=== PATIENT | male | born 1975 | race Caucasian/White ===

== ENCOUNTER 2017-11-28 23:35 | Observation (INO) | payer OTHER, SELFPAY ==
[2017-11-29] MEDS ORDERED: Enoxaparin Sodium 80 MG/0.8 ML SYRINGE ONE (01:43)
[2017-11-29 02:02] LABS: Troponin I Less than 0.010 ng/mL (< 0.028)
[2017-11-29] MEDS ORDERED: Acetaminophen 325 MG TAB PO PRN (02:46)
[2017-11-29] MEDS ORDERED: Ondansetron HCl/PF 4 MG/2 ML Vial IVP PRN (02:46)
[2017-11-29] MEDS ORDERED: Ondansetron ODT 4 MG TAB SL PRN (02:46)
[2017-11-29 03:31] VITALS: BMI 29.5
[2017-11-29 05:09] LABS: Troponin I Less than 0.010 ng/mL (< 0.028)
[2017-11-29] MEDS ORDERED: Aspirin 325 MG TAB PO SCH (08:00)
[2017-11-29] MEDS ORDERED: Prevnar 13-Val Conj/PF 0.5 ML SYRINGE IM ONE (09:00)
--- NOTE | 2017-11-29 13:21 | NM ---
VENTILATION PERFUSION STUDY: 11/29/2017 HISTORY: Chest pain and elevated D-dimer. RADIOPHARMACEUTICAL: Xenon 133 gas 11.6 millicuries inhaled. Technetium 99m labeled MAA 6.4 millicuries IV. FINDINGS: There is normal uptake of radiotracer on the ventilation portion of the study. There is normal washo ut of radiotracer present. No ventilation defect is appreciated. The perfusion portion of the study demonstrates no segmental or subsegmental defect. No ventilation perfusion mismatch is seen. A chest x-ray obtained on 11/28/2017 at the [facility] demonstrated that the lungs are clear. IMPRESSION: Low probability for pulmonary embolus. POS: [facility]
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
[2017-11-29 20:07] VITALS: BP 120/84; TEMP 97.9
[2017-11-29] MEDS ORDERED: MORPHINE SULFATE 30 MG PO SCH (21:00)
[2017-11-29] MEDS ORDERED: Nortriptyline HCl 25 MG CAP PO SCH (21:00)
[2017-11-29] MEDS ORDERED: Morphine ER 30 MG TAB PO PRN (21:00)
--- NOTE | 2017-11-30 02:27 | CON ---
DATE OF CONSULTATION: 11/29/2017 REASON FOR CONSULTATION: Colon cancer. HISTORY OF PRESENT ILLNESS: Mr. Liz is a 42-year-old male who was recently released from [facility]. He presented to our ER with complaints of acute onset of chest pain. The patient had a CT angio performed in an outlying ER which was indeterminate, so he was sent to this facility for further evaluation. He had a PASTRY ARTIST scan, which showed a low probability of pulmonary embolism. The patient has a history of stage IV colorectal carcinoma. He was diagnosed in 12/2016 while in inmate. He said he had a lesion right before above his rectum and he had 2 liver lesions and 1 lesion in each lung bilaterally. He underwent a hemicolectomy in 04/2017 with a diverting ileostomy. He was started on chemotherapy. He states he received 2 doses of Erbitux and what sounds like the FOLFOX regimen. Chemo continued for 4 cycles until 08/2017 when he was diagnosed with a clot at the terminal end of his MediPort in his atrium. He was started on Lovenox b.i.d. and transitioned to Coumadin. He was on Coumadin for several weeks and then transitioned back to once daily Lovenox in September. He received two more cycles of chemotherapy. He missed his transportation to [place] for his cycle mid October so his last cycle was every October. He did have a repeat CT scan at some point which showed improvement in his liver lesions after chemotherapy. His Lovenox was discontinued and he was released on 11/21/2017. All care was done at [facility]. The patient denies any complaints at this time. No chest pain, shortness of breath. No abdominal discomfort. His ileostomy has good output. His appetite is good. He has not had any issues with weight loss. PAST MEDICAL HISTORY: 1. Stage IV colorectal cancer with liver and lung mets. 2. History of MediPort clot. PAST SURGICAL HISTORY: Hemicolectomy with ileostomy placement. ALLERGIES: COCONUT and MUSTARD. CURRENT MEDICATIONS: Pamelor 75 mg b.i.d., minocycline b.i.d., morphine sulfate b.i.d. p.r.n. FAMILY HISTORY: No history of colon cancer. Father had lung cancer. SOCIAL HISTORY: Recently released from [facility] 1 week ago. He has resumed smoking and drinking, but no illicit drug use. REVIEW OF SYSTEMS: A 12-point review of systems is negative except for noted in the HPI. PHYSICAL EXAMINATION: VITAL SIGNS: Temperature is 98.6, pulse is 81, respiratory rate 16, BP is 124/ 81. He is 97% on room air. GENERAL: This is a well-developed, well-nourished male, in no acute distress. HEENT: Normocephalic, atraumatic. Pupils are equal and reactive to light. NECK: Supple. CARDIOVASCULAR: Regular rate and rhythm. LUNGS: Clear. ABDOMEN: Soft, nontender. His ileostomy in his right lower quadrant. EXTREMITIES: No clubbing, cyanosis, or edema. SKIN: No rash. He does have a MediPort in his right chest. HEMATOLOGICAL: There is no petechia or purpura. NEUROLOGIC: Nonfocal. PSYCHIATRIC: The patient is alert and oriented and appropriate. PERTINENT LABORATORY AND X-RAYS: Current WBCs are 8.9, hemoglobin 12.9, hematocrit 38.4, platelet count is 153,000, 60% neutrophils, 31% lymphocytes, 6 % monocytes. Sodium is 141, potassium 3.6, chloride 106, CO2 is 24, BUN is 13, creatinine 0.82, calcium is 9.8, total bilirubin is 0.5, AST 74, ALT is 100, alkaline phosphatase is 124. BNP is less than 10. Troponin is negative. Serum total protein 7.4, albumin is 4, globulin is 3.4, lipase is 59. Urine is negative for bacteria. ASSESSMENT: 1. Stage IV colorectal cancer, status post 6 cycles of chemotherapy. 2. History of MediPort clots, specifics are unclear. 3. Noncardiac chest pain. DISCUSSION: This case was discussed in detail with Dr. Hillman. We will stop the minocycline, this was used with Erbitux chemotherapy for rash and is not longer needed. It does not appear that he has a pulmonary embolism based on the VQ scan. The specifics regarding his MediPort clot are not clear. Patient unfortunately has no insurance, it will be very difficult to monitor his Coumadin levels. We would recommend starting aspirin 325 mg daily. Patient states that [facility] has agrred to continue to follow him in the outpatient setting. My suggestion to him is to go back to [facility] and have a discussion regarding further anticoagulation and chemotherapy. He might need at least 3 more months of standard FOLFOX regimen and likely a maintenance chemo at that time. Thank you for the consult. MTDD
[2017-11-30] MEDS ORDERED: Aspirin 325 MG TAB PO SCH (09:00)
--- NOTE | 2017-12-03 13:43 | EKG ---
Test Reason : N/V CP Blood Pressure : / mmHG Vent. Rate : 078 BPM Atrial Rate : 078 BPM P-R Int : 192 ms QRS Dur : 100 ms QT Int : 368 ms P-R-T Axes : 026 -02 008 degrees QTc Int : 419 ms Normal sinus rhythm Normal ECG Confirmed by DENILSON AMBROSIO, ANNIE Bliss ([id number]), manager search MARLENI NAM ([id number]) on 12/03/2017 1:42:49 PM Referred By: Confirmed By:ANNIE OREILLY MD
== END 2017-11-29 20:07 | disposition home or self-care (01) ==
LOC: ERS 23:35 → 2NO 11-29 02:26
PROVIDERS: ADMIT Hospitalist; ATTEND Hospitalist
DX: R07.89 Other chest pain (principal); C19 Malignant neoplasm of rectosigmoid junction; Z87.891 Personal history of nicotine dependence; Z79.899 Other long term (current) drug therapy; Z91.018 Allergy to other foods
CPT/HCPCS: 36415; 78582; 84484; 90471; 90670; 93005; 96372; 99406; A9540; A9558; G0009; G0378; J1650

== ENCOUNTER 2018-01-13 07:59 | Outpatient (CLI) | payer OTHER, SELFPAY ==
--- NOTE | 2018-01-13 10:49 | CT ---
CT THORAX WITH IV CONTRAST: CT ABDOMEN AND PELVIS WITH IV CONTRAST: 01/13/2018 HISTORY: Malignant neoplasm, rectosigmoid junction. COMPARISON: CT angiogram thorax on 11/28/2017. FINDINGS: THORAX: The previously described left upper lobe pulmonary nodule, measuring 8 mm, as well as the pu lmonary nodule at the medial aspect of the right lower lobe, measuring 11 mm, is again seen and uncha nged in size or appearance. There are scattered linear areas of atelectasis present within the right middle lobe and in the left lower lobe. No pleural effusion is present. There is no evidence of me diastinal, hilar, or axillary lymphadenopathy. A right internal jugular vein Mediport catheter is noted in place. The thoracic aorta is normal in c aliber. ABDOMEN AND PELVIS: There is calcified granuloma seen in the lateral segment of the left hepatic lob e. The liver otherwise demonstrates a normal CT appearance. The spleen, pancreas, bilateral adrenal glands, kidneys, abdominal aorta, and opacified small bowel d emonstrate a normal CT appearance. There are post surgical changes at the rectosigmoid junction. Th ere is a right lower quadrant ostomy present. No enlarged lymph nodes are seen by CT size criteria. There is no free fluid, fluid collection, or l ymphadenopathy seen in the abdomen or pelvis. There is eccentric thickening involving the right lateral aspect of the urinary bladder with slight t hickening seen posteriorly. There are no lytic or sclerotic osseous lesions seen. Minimal degenerative change is seen in the spi ne. IMPRESSION: 1. Eccentric thickening involving the right lateral aspect of the urinary bladder. A urology consul tation is suggested for further evaluation. 2. Pulmonary nodules, left upper lobe and right lower lobe, also seen on the CTA chest on 11/28/[address] scan examination is suggested for further evaluation. 3. Right lower quadrant ostomy with post surgical change at the rectosigmoid junction. 4. No evidence of lymphadenopathy. 5. No focal hepatic lesion is seen. There is slight heterogeneity in the posterior segment, right h epatic lobe, but this may be related to phase of imaging, and a discrete measurable lesion is not vis ualized. POS: [facility]
== END 2018-01-13 08:00 | disposition home or self-care (01) ==
LOC: CT 07:59
PROVIDERS: ATTEND Internal Medicine Medical Oncology
DX: Z51.11 Encounter for antineoplastic chemotherapy (principal); C19 Malignant neoplasm of rectosigmoid junction; R91.8 Other nonspecific abnormal finding of lung field; Z93.3 Colostomy status; Z79.899 Other long term (current) drug therapy
CPT/HCPCS: 71260; 74177; 93306

== ENCOUNTER 2018-02-03 06:46 | Day surgery (SDC) | payer MEDICAID ==
[2018-02-02 18:05] VITALS: BMI 33.4
[2018-02-03] MEDS ORDERED: Midazolam HCl 2 mg/2 ml Vial ONE (08:17)
[2018-02-03] MEDS ORDERED: PROPOFOL 0 ML ONE (08:31)
[2018-02-03] MEDS ORDERED: PROPOFOL 20 ML ONE (08:32)
[2018-02-03] MEDS ORDERED: Lidocaine 2% Jelly 5 ML TUBE ONE (08:37)
[2018-02-03] MEDS ORDERED: Lidocaine 2% PF 100 mg/5 ml Syringe ONE (08:37)
[2018-02-03] MEDS ORDERED: PROPOFOL 200 MG/20 ML VIAL ONE (15:14)
--- NOTE | 2018-02-03 23:02 | ECHO ---
DATE OF SERVICE: 02/03/2018. PREPROCEDURE DIAGNOSIS: Cardiac mass. The Anesthesiology department provided with sedation for the patient. Please see their notes for det ails. After adequate sedation was achieved, the transesophageal probe was inserted into the mouth and into the esophagus without issues. Multiplanar views were then obtained. Left ventricle is normal size with normal wall thickness. Systolic function is normal, estimated EF of 55-60% with no regional wall motion abnormalities. Left atrium is mildly dilated with no evidence of mass or thrombus. Right ventricle is mildly dilated with normal RV systolic function. Right atrium is mildly dilated. There is a large mass attached to the free wall of the right atrium consistent with a mass. It does not seem to be a thrombus. More than likely related to metastatic di sease. There is a catheter seen on the left atrium. Interatrial septum is mildly aneurysmal, but appears to be intact with by color Doppler. Aortic valve has three cusps, no stenosis or regurgitation. Mitral valve is structurally normal with mild MR, no stenosis. Pulmonary valve is structurally normal, no stenosis or regurgitation. Tricuspid valve is structurally normal, no stenosis. There is mild tricuspid regurgitation. CONCLUSIONS: 1. Normal systolic function, EF of 55-60%. 2. Mild MR. 3. Biatrial enlargement. 4. Large mass attached to the free wall of the right atrium suggestive of metastatic disease. Unlik ayad that this is a thrombus.
== END 2018-02-03 09:51 | disposition home or self-care (01) ==
LOC: CCL 06:46
PROVIDERS: ATTEND Internal Medicine Cardiovascular Disease
PROC: B24BZZ4 Ultrasonography of Heart with Aorta, Transesophageal (ICD-10-PCS; principal; 2018-02-03)
DX: I51.89 Other ill-defined heart diseases (principal); I34.0 Nonrheumatic mitral (valve) insufficiency; C78.02 Secondary malignant neoplasm of left lung; C78.01 Secondary malignant neoplasm of right lung; C78.7 Secondary malignant neoplasm of liver and intrahepatic bile duct; F17.210 Nicotine dependence, cigarettes, uncomplicated; Z85.038 Personal history of other malignant neoplasm of large intestine; Z79.01 Long term (current) use of anticoagulants; Z91.018 Allergy to other foods; Z90.49 Acquired absence of other specified parts of digestive tract
CPT/HCPCS: 93312; J2001; J2250; J2704

== ENCOUNTER 2018-02-14 08:47 | Day surgery (SDC) | payer MEDICAID ==
[2018-02-14] MEDS ORDERED: BEVACIZUMAB IVPB SCH (09:00)
[2018-02-14] MEDS ORDERED: Dexamethasone 10 MG in Sodium Chloride 0.9% 50 ML IVPB SCH (09:00)
[2018-02-14] MEDS ORDERED: OXALIPLATIN IVPB SCH (09:00)
[2018-02-14] MEDS ORDERED: SODIUM CHLORIDE 0.9% IVPB SCH (09:00)
[2018-02-14] MEDS ORDERED: WATER IVPB SCH ×2 (09:00)
[2018-02-14] MEDS ORDERED: Ondansetron HCl/PF 15 MG in Sodium Chloride 0.9% 50 ML IVPB SCH (09:00)
[2018-02-14] MEDS ORDERED: Leucovorin Calcium 50 MG in Dextrose 5% in Water 50 ML IVPB SCH (09:00)
[2018-02-14] MEDS ORDERED: FLUOROURACIL IVPB SCH (09:00)
[2018-02-14] MEDS ORDERED: DEXTROSE 5% IVPB SCH ×2 (09:00)
[2018-02-14] MEDS ORDERED: Dexamethasone Sod Phosphate 10 MG, Ondansetron 2MG/ML MDV 15 MG in Sodium Chloride 0.9%... IVPB SCH (09:15)
[2018-02-14] MEDS ORDERED: Bevacizumab 400 MG, Bevacizumab 100 MG in Sodium Chloride 0.9% 80 ML IVPB SCH (09:15)
[2018-02-14] MEDS ORDERED: Oxaliplatin 200 MG in Dextrose 5% in Water 500 ML IVPB SCH (09:30)
[2018-02-14 11:34] VITALS: BP 132/74; TEMP 97.5
[2018-02-14] MEDS ORDERED: Sodium Chloride 0.9% 20 ML ONE (12:50)
== END 2018-02-14 16:47 | disposition home or self-care (01) ==
LOC: ONC/OP 08:47
PROVIDERS: ATTEND Internal Medicine Medical Oncology
DX: Z51.11 Encounter for antineoplastic chemotherapy (principal); C19 Malignant neoplasm of rectosigmoid junction; C78.7 Secondary malignant neoplasm of liver and intrahepatic bile duct; C78.01 Secondary malignant neoplasm of right lung; C78.02 Secondary malignant neoplasm of left lung; F17.210 Nicotine dependence, cigarettes, uncomplicated; Z79.01 Long term (current) use of anticoagulants; Z79.82 Long term (current) use of aspirin; Z91.018 Allergy to other foods; Z93.2 Ileostomy status; Z90.49 Acquired absence of other specified parts of digestive tract
CPT/HCPCS: 36415; 80053; 82248; 82378; 83615; 84100; 84550; 96367; 96375; 96413; 96415; 96417; A4216; J0640; J1100; J1642; J2405; J7050; J7070; J9035; J9190; J9263

== ENCOUNTER 2018-02-28 10:31 | Day surgery (SDC) | payer MEDICAID ==
[2018-02-28] MEDS ORDERED: DEXTROSE 5% IVPB SCH (11:00)
[2018-02-28] MEDS ORDERED: Leucovorin Calcium 50 MG in Dextrose 5% in Water 50 ML IVPB SCH (11:00)
[2018-02-28] MEDS ORDERED: FLUOROURACIL IVPB SCH (11:00)
[2018-02-28] MEDS ORDERED: WATER IVPB SCH (11:00)
[2018-02-28] MEDS ORDERED: Oxaliplatin 200 MG in Dextrose 5% in Water 500 ML IVPB SCH (11:15)
[2018-02-28] MEDS ORDERED: Ondansetron HCl/PF 15 MG in Sodium Chloride 0.9% 50 ML IVPB SCH (11:15)
[2018-02-28] MEDS ORDERED: Bevacizumab 400 MG, Bevacizumab 100 MG in Sodium Chloride 0.9% 80 ML IVPB SCH (11:15)
[2018-02-28] MEDS ORDERED: Dexamethasone Sod Phosphate 10 MG, Ondansetron 2MG/ML MDV 15 MG in Sodium Chloride 0.9%... IVPB SCH (11:15)
[2018-02-28] MEDS ORDERED: Sodium Chloride 0.9% 20 ML ONE (11:52)
[2018-02-28 12:14] VITALS: BP 118/68; TEMP 98.2
== END 2018-02-28 16:01 | disposition home or self-care (01) ==
LOC: ONC/OP 10:31
PROVIDERS: ATTEND Internal Medicine Medical Oncology
DX: Z51.11 Encounter for antineoplastic chemotherapy (principal); C19 Malignant neoplasm of rectosigmoid junction; F17.200 Nicotine dependence, unspecified, uncomplicated; Z79.01 Long term (current) use of anticoagulants; Z79.82 Long term (current) use of aspirin; Z79.899 Other long term (current) drug therapy
CPT/HCPCS: 96367; 96413; 96415; 96416; 96417; J0640; J2405; J7050; J7070; J9035; J9190; J9263

== ENCOUNTER 2018-03-14 09:13 | Day surgery (SDC) | payer OTHER ==
[2018-03-14] MEDS ORDERED: Leucovorin Calcium 50 MG in Dextrose 5% in Water 50 ML IVPB SCH (09:30)
[2018-03-14] MEDS ORDERED: ONDANSETRON IVPB SCH (09:30)
[2018-03-14] MEDS ORDERED: WATER IVPB SCH (09:30)
[2018-03-14] MEDS ORDERED: SODIUM CHLORIDE 0.9% IVPB SCH (09:30)
[2018-03-14] MEDS ORDERED: DEXAMETHASONE IVPB SCH (09:30)
[2018-03-14] MEDS ORDERED: Bevacizumab 400 MG, Bevacizumab 100 MG in Sodium Chloride 0.9% 80 ML IVPB SCH (09:30)
[2018-03-14] MEDS ORDERED: FLUOROURACIL IVPB SCH (09:30)
[2018-03-14] MEDS ORDERED: Oxaliplatin 200 MG in Dextrose 5% in Water 500 ML IVPB SCH (09:30)
[2018-03-14] MEDS ORDERED: DEXTROSE 5% IVPB SCH (09:30)
[2018-03-14 09:39] VITALS: BP 132/79; TEMP 98.1
[2018-03-14] MEDS ORDERED: Sodium Chloride 0.9% 30 ML ONE (10:09)
== END 2018-03-14 15:32 | disposition home or self-care (01) ==
LOC: ONC/OP 09:13
PROVIDERS: ATTEND Internal Medicine Medical Oncology
DX: Z51.11 Encounter for antineoplastic chemotherapy (principal); C19 Malignant neoplasm of rectosigmoid junction; F17.200 Nicotine dependence, unspecified, uncomplicated; Z79.899 Other long term (current) drug therapy; Z79.01 Long term (current) use of anticoagulants
CPT/HCPCS: 96375; 96413; 96415; 96416; 96417; J0640; J1100; J2405; J7050; J7070; J9035; J9190; J9263

== ENCOUNTER 2018-04-18 09:33 | Day surgery (SDC) | payer OTHER ==
[2018-04-18] MEDS ORDERED: Sodium Chloride 0.9% 40 ML ONE ×2 (09:49→10:52)
[2018-04-18] MEDS ORDERED: DEXTROSE 5% IVPB SCH ×2 (10:30)
[2018-04-18] MEDS ORDERED: Dexamethasone 4 mg/ml Vial SLOW IVP SCH (10:30)
[2018-04-18] MEDS ORDERED: Ondansetron PF 4 MG/2 ML Vial SLOW IVP SCH (10:30)
[2018-04-18] MEDS ORDERED: FLUOROURACIL IVPB SCH (10:30)
[2018-04-18] MEDS ORDERED: OXALIPLATIN IVPB SCH (10:30)
[2018-04-18] MEDS ORDERED: Leucovorin Calcium 50 MG in Dextrose 5% in Water 50 ML IVPB SCH (10:30)
[2018-04-18] MEDS ORDERED: SODIUM CHLORIDE 0.9% IVPB SCH (10:30)
[2018-04-18] MEDS ORDERED: PALONOSETRON HCL 0.05 MG/ML 5 ML VIAL IVP SCH (10:30)
[2018-04-18] MEDS ORDERED: BEVACIZUMAB IVPB SCH (10:30)
[2018-04-18] MEDS ORDERED: WATER IVPB SCH ×2 (10:30)
[2018-04-18 10:45] VITALS: BP 131/74; TEMP 97.7
[2018-04-18] MEDS ORDERED: Ondansetron 2MG/ML MDV 15 MG in Sodium Chloride 0.9% 50 ML IVPB SCH (11:00)
[2018-04-18] MEDS ORDERED: Bevacizumab 500 MG in Sodium Chloride 0.9% 80 ML IVPB SCH (11:15)
== END 2018-04-18 16:24 | disposition home or self-care (01) ==
LOC: ONC/OP 09:33
PROVIDERS: ATTEND Internal Medicine Medical Oncology
DX: Z51.11 Encounter for antineoplastic chemotherapy (principal); C19 Malignant neoplasm of rectosigmoid junction; Z79.01 Long term (current) use of anticoagulants; Z91.018 Allergy to other foods
CPT/HCPCS: 96367; 96375; 96413; 96415; 96416; 96417; J0640; J1100; J2405; J2469; J7050; J7070; J9035; J9190; J9263

== ENCOUNTER 2018-05-10 10:21 | Day surgery (SDC) | payer OTHER | END 2018-05-10 13:00 | disposition home or self-care (01) | LOC: ONC/OP 10:21 | PROVIDERS: ATTEND Internal Medicine Medical Oncology | DX: Z51.11 Encounter for antineoplastic chemotherapy (principal); C19 Malignant neoplasm of rectosigmoid junction; F17.210 Nicotine dependence, cigarettes, uncomplicated; Z79.01 Long term (current) use of anticoagulants; Z91.018 Allergy to other foods; Z90.49 Acquired absence of other specified parts of digestive tract ==

== ENCOUNTER 2018-06-13 11:23 | Outpatient (CLI) | payer OTHER ==
--- NOTE | 2018-06-13 14:32 | PET ---
PET CT: HISTORY: Cancer with metastatic disease to the lung and liver. A lesion is seen in the right atrium which may represent thrombus versus an metastasis. COMPARISON: CT chest, abdomen, and pelvis 01/13/2018. TECHNIQUE: A PET CT was performed from the skull base to the mid thigh after administration of 12.6 mCi of F18-F DG. FINDINGS: There is a small nodule in the left upper lobe of the lungs, unchanged in size. This demonstrates a max SUV value of 0.6. There is a nodule in the right lower lobe of the lung which is also stable wit h a max SUV value of 1.6. No other pulmonary nodules are identified. There is an area along the right atrium which is hypodense compared to the contrast within the right atrium. This area does not demonstrate hypermetabolic activity with a max SUV value of 2.2. No suspicious areas of hypermetabolic activity are seen within the neck or chest. There is heterogeneous metabolic activity within the liver. No obvious focal areas of hypermetabolic activity are seen within the liver. No obvious focal liver lesions are identified on this limited n oncontrast examination. No suspicious areas of hypermetabolic activity are seen within the abdomen or pelvis. No suspicious areas of hypermetabolic activity are seen within the skeleton. CT images used for attenuation correction show an ostomy in the right upper quadrant of the abdomen. No enlarged abdominal or pelvic lymph nodes are seen. IMPRESSION: 1. The pulmonary nodules identified are not hypermetabolic. The nodule in the left upper lobe may b e below PET resolution. 2. The right atrial mass-like region does not demonstrate hypermetabolic activity and could represen t thrombus versus a right atrial mass not demonstrating hypermetabolic activity. This would favor a benign mass rather than metastatic disease to the heart. 3. No obvious focal lesion is seen in the liver. There is heterogeneous activity in the liver and d iffuse nonfocal metastatic disease in the liver cannot be entirely excluded. POS: [facility]
== END 2018-06-13 11:24 | disposition home or self-care (01) ==
LOC: PET 11:23
PROVIDERS: ATTEND Internal Medicine Medical Oncology
DX: C18.9 Malignant neoplasm of colon, unspecified (principal); R91.8 Other nonspecific abnormal finding of lung field; I77.9 Disorder of arteries and arterioles, unspecified
CPT/HCPCS: 78815; A9552

== ENCOUNTER 2018-08-09 11:15 | Inpatient (IN) | payer OTHER ==
[2018-08-09 11:33] VITALS: BMI 30.5
[2018-08-22] MEDS ORDERED: Ketorolac Tromethamine 30 MG/ML VIAL ONE (09:29)
[2018-08-22] MEDS ORDERED: Sodium Chloride 0.9% 100 ML ONE (09:29)
[2018-08-22] MEDS ORDERED: cefOXitin 2 GM VIAL ONE (09:29)
[2018-08-22] MEDS ORDERED: Fentanyl 100 MCG/2 ML VIAL ONE ×3 (09:53→15:29)
[2018-08-22] MEDS ORDERED: Midazolam HCl 2 mg/2 ml Vial ONE (09:53)
[2018-08-22] MEDS ORDERED: Dexamethasone 4 mg/ml Vial ONE (09:58)
[2018-08-22] MEDS ORDERED: Bupivacaine/Epinephrine 0.25% 30 ML VIAL ONE (12:23)
[2018-08-22] MEDS ORDERED: Lidocaine 1% w/Epinephrine 1:100K 20 ML VIAL ONE (12:23)
[2018-08-22] MEDS ORDERED: Bupivacaine HCl 0.5%/Epinephrine 1:200,000/PF 30 ml Vial ONE (13:30)
[2018-08-22] MEDS ORDERED: Lidocaine 1% PF 5 ML VIAL ONE (13:43)
[2018-08-22] MEDS ORDERED: Dexamethasone 20 MG/5 ML VIAL ONE (13:43)
[2018-08-22] MEDS ORDERED: Glycopyrrolate 0.2 MG/ML 5 ML SYRINGE ONE (13:43)
[2018-08-22] MEDS ORDERED: PROPOFOL 200 MG/20 ML VIAL ONE (13:43)
[2018-08-22] MEDS ORDERED: Rocuronium Bromide 10 MG/ML (10ML VIAL) ONE (13:43)
[2018-08-22] MEDS ORDERED: Ondansetron PF 4 MG/2 ML Vial ONE (13:43)
[2018-08-22] MEDS ORDERED: Promethazine HCl 25 MG/ML VIAL SLOW IVP PRN (15:02)
[2018-08-22] MEDS ORDERED: Ondansetron HCl/PF 4 MG/2 ML Vial IVP PRN (15:02)
[2018-08-22] MEDS ORDERED: Promethazine HCl 25 MG/ML VIAL IM PRN ×2 (15:02→16:55)
[2018-08-22 15:50] LABS: Glucose Accucheck Confirmation 162 mg/dl (70-105)
[2018-08-22] MEDS ORDERED: Morphine 4 MG/ML VIAL SLOW IVP PRN ×2 (16:55)
[2018-08-22] MEDS ORDERED: hydrALAZINE 20 MG/ML VIAL SLOW IVP PRN (16:55)
[2018-08-22] MEDS ORDERED: Ondansetron PF 4 MG/2 ML Vial IVP PRN (16:55)
[2018-08-22] MEDS ORDERED: cefOXitin Sodium/Dextrose,Iso 2 GM in Premix Bag 1 BAG IVPB SCH (18:00)
[2018-08-22] MEDS: Ketorolac Tromethamine 30 MG/ML VIAL IVP SCH ×2 (18:34→23:11)
[2018-08-22] MEDS: Acetaminophen 1,000 MG in Premix Bag 1 BAG IVPB SCH ×2 (18:35→23:11)
[2018-08-22] MEDS: D5 1/2 NS w/20 mEq KCL 1,000 ML IV SCH (18:35)
[2018-08-22] MEDS: cefOXitin Sodium/Dextrose,Iso 2 GM in Premix Bag 1 BAG IVPB SCH (19:44)
[2018-08-22] MEDS: Famotidine/PF 20 mg/2ml Vial SLOW IVP SCH (19:44)
[2018-08-22] MEDS ORDERED: Enoxaparin Sodium 40 MG/0.4 ML SYRINGE SC SCH (21:00)
[2018-08-22] MEDS: Famotidine 20 MG TAB PO SCH (21:56)
[2018-08-23] MEDS: D5 1/2 NS w/20 mEq KCL 1,000 ML IV SCH ×3 (01:14→15:00)
[2018-08-23] MEDS: cefOXitin Sodium/Dextrose,Iso 2 GM in Premix Bag 1 BAG IVPB SCH ×2 (03:30→11:36)
--- NOTE | 2018-08-23 04:23 | PRG ---
DATE OF SERVICE: HISTORY OF PRESENT ILLNESS: Mr. Liz is postoperative day #1 from ileostomy closure. He has no complaints. He has appropriate abdominal discomfort. He has been out of bed to void, but has not really walked in the forde yet. He has been tolerating clear liquids uneventfully. PHYSICAL EXAMINATION: VITAL SIGNS: He is afebrile, pulse is in the 60s, and blood pressure 134/83. GENERAL: He is resting comfortably in bed and is present at bedside. LUNGS: Clear to auscultation. CARDIAC: Regular rate and rhythm. ABDOMEN: Soft with normoactive bowel sounds. His dressing is clean, dry, and intact. EXTREMITIES: He has evidence of a superficial thrombophlebitis along the saphenous vein on his right medial leg. He tells me it has been there for at least a week. It apparently occurred even while he was anticoagulated with Eliquis. ASSESSMENT: Patient is doing well following ileostomy reversal. PLAN: He is currently receiving b.i.d. Lovenox. I will initiate Eliquis today and observe him on clear liquids today. I would anticipate discharge tomorrow. Job ID: [id number]
[2018-08-23] MEDS: Acetaminophen 1,000 MG in Premix Bag 1 BAG IVPB SCH ×2 (05:05→11:37)
[2018-08-23] MEDS: Ketorolac Tromethamine 30 MG/ML VIAL IVP SCH ×4 (05:05→20:02)
[2018-08-23 05:11] LABS: #Monocytes 0.7 thou/uL (0.11-0.59); #Neutrophils 15.1 thou/uL (1.40-6.50); %Basophils 0.1 % (0.0-1.0); %Monocytes 4.4 % (0.0-10.0); %Neutrophils 89.5 % (42.0-75.0); Hemoglobin 13.8 g/dL (14.0-18.0); Mean Corpuscular HGB CONC 32.4 g/dL (32.0-36.0); Mean Corpuscular Hemoglobin 26.7 pg (27.0-31.0); Mean Corpuscular Volume 82.4 fL (78.0-98.0); Mean Platelet Volume 8.3 fL (7.4-10.4); Platelet Count 228 thou/uL (130-400); RBC Distribution Width 14.5 % (11.5-14.5); Red Blood Cell (RBC) Count 5.17 mill/uL (4.70-6.10); White Blood Cell (WBC) Count 16.9 thou/uL (4.8-10.8)
[2018-08-23 05:35] LABS: Anion Gap 11 mmol/L (10-20); BUN (Urea Nitrogen) 8 mg/dL (8.9-20.6); Calc. Creatinine Clearance 135 mL/min (70-130); Calcium 9.2 mg/dL (7.8-10.44); Carbon Dioxide 26 mmol/L (22-29); Chloride 104 mmol/L (98-107); Estimated GFR-MDRD 88; Glucose 124 mg/dL (70-105); Potassium 4.1 mmol/L (3.5-5.1); Sodium 137 mmol/L (136-145)
[2018-08-23] MEDS: Famotidine 20 MG TAB PO SCH ×2 (07:52→07:53)
[2018-08-23] MEDS: Apixaban 5 MG TAB PO SCH ×2 (07:52→20:03)
[2018-08-23] MEDS: Famotidine/PF 20 mg/2ml Vial SLOW IVP SCH ×2 (07:54→20:16)
[2018-08-23] MEDS ORDERED: HYDROcodone/Acetaminophen 7.5/325 mg Tablet PO PRN (14:49)
[2018-08-23] MEDS: HYDROcodone/Acetaminophen 7.5/325 mg Tablet PO PRN (20:03)
[2018-08-24] MEDS: Ketorolac Tromethamine 30 MG/ML VIAL IVP SCH ×3 (01:14→12:14)
[2018-08-24 04:09] VITALS: TEMP 98
[2018-08-24] MEDS: Famotidine/PF 20 mg/2ml Vial SLOW IVP SCH (08:57)
[2018-08-24] MEDS: Famotidine 20 MG TAB PO SCH (08:58)
[2018-08-24] MEDS: Apixaban 5 MG TAB PO SCH (08:59)
[2018-08-24] MEDS: HYDROcodone/Acetaminophen 7.5/325 mg Tablet PO PRN (09:04)
[2018-08-24 12:18] VITALS: BP 118/78
--- NOTE | 2018-08-25 12:39 | OP ---
DATE OF PROCEDURE: 08/22/2018 PREOPERATIVE DIAGNOSIS: Unnecessary/undesired ileostomy. POSTOPERATIVE DIAGNOSIS: Unnecessary/undesired ileostomy. PROCEDURE PERFORMED: Ileostomy reversal with short-segment small bowel resection. ANESTHESIA: General endotracheal. INDICATIONS: The patient is a 43-year-old white male. He had a right lower quadrant ileostomy placed at the time of surgery for rectal cancer a couple of years ago. He presents at this time for closure of his ileostomy. DESCRIPTION OF PROCEDURE: Informed consent was obtained and the patient was taken to the operating room. A tap block was placed by Anesthesia prior to coming to the operating room. General endotracheal anesthesia was obtained with the patient in supine position. The ileostomy was closed using a running locking suture of 2-0 silk in a transverse fashion. The abdomen was then prepped with ChloraPrep and draped in sterile fashion. Local anesthetic was infiltrated using 1% lidocaine with epinephrine. An elliptical incision was created in a transverse fashion to include the suture line of the ileostomy closure. Dissection was carried down adjacent to the bowel wall through the ample subcutaneous fatty tissue down to the fascia. I carefully dissected the peritoneal cavity and circumferentially dissected the small bowel free from the abdominal wall adhesions. Although, this was a single lumen ileostomy. The efferent segment of the small bowel was immediately adjacent and it was pulled up easily into the wound. I ensured complete mobility from the fascia bilaterally. The distal segment of small bowel was only about 15 to 20 cm from the ileocecal valve. Using segregated instruments, I created enterotomies in the adjacent segments of small bowel, through which I passed the ARI 75 stapler and performed a double-stapled anastomosis in the usual fashion without any difficulty or complications. The intervening mesentery was taken down between clamps and 2-0 silk ties and the specimen was passed off the field. The small bowel staple line was buttressed with interrupted sutures of 3-0 silk. The mesentery defect was closed using 3-0 silk as well. The small bowel was then dropped down to the abdominal cavity. The fascia was closed in 2 layers using running suture of #1 PDS suture. The wound was copiously irrigated with a Pulsavac device utilizing an excess of 2 L for irrigation. Gowns and gloves were changed and different treatments were utilized during the closure, including the fascial closure. The subcutaneous tissue was approximated with a running suture of 3-0 Vicryl. Skin edges were approximated with skin alison. Dry gauze dress was placed externally. There were no complications. The patient tolerated the procedure well and was taken to recovery room in stable condition. Job ID: [id number]
--- NOTE | 2018-08-25 14:47 | DIS ---
DATE OF ADMISSION: 08/22/2018 DATE OF DISCHARGE: 08/24/2018 ADMISSION DIAGNOSIS: Unnecessary/undesired ileostomy following prior surgery for rectal cancer. DISCHARGE DIAGNOSIS: Unnecessary/undesired ileostomy following prior surgery for rectal cancer. OPERATION PERFORMED: Ileostomy reversal with short-segment small bowel resection. ADMISSION HISTORY: The patient is a 43-year-old white male. While he was incarcerated in penitentiary in [place] a couple of years ago, he had surgery for a large rectal cancer that was apparently felt to be metastatic. He was given a temporary diverted ileostomy at the time of his surgery. He was followed up as an outpatient secondary to his release from penitentiary. To the knowledge of his oncologist, he is currently disease free. He returns requesting ileostomy closure. HOSPITAL COURSE: Uneventful surgery was performed on the day of admission. He had no substantial blood loss or complications. He had an uneventful postoperative course as well. His diet was able to be advanced. On the day of his discharge (postoperative day #2), he was passing flatus regularly but has not yet had a bowel movement. He is voiding. He is tolerating his diet appropriately and his pain is well controlled. He is discharged home at this time with a prescription for hydrocodone and asked to follow up with myself in 2 weeks for routine followup. There is currently no wound drainage, but he is asked to contact me if he has any problems or concerns regarding his ileostomy closure wound. Job ID: [id number]
== END 2018-08-24 15:57 | disposition home or self-care (01) | DRG 331 ==
LOC: EDSTATUS 11:15 → SURG A 08-22 09:01 → SURG B 08-22 16:48
PROVIDERS: ADMIT Specialist; ATTEND Specialist
PROC: 0DBB0ZZ Excision of Ileum, Open Approach (ICD-10-PCS; principal; 2018-08-22)
PROC: 3E0T3BZ Introduction of Anesthetic Agent into Peripheral Nerves and Plexi, Percutaneous Approach (ICD-10-PCS; 2018-08-22)
DX: Z43.2 Encounter for attention to ileostomy (principal); Z85.048 Personal history of other malignant neoplasm of rectum, rectosigmoid junction, and anus; I80.01 Phlebitis and thrombophlebitis of superficial vessels of right lower extremity; Z79.01 Long term (current) use of anticoagulants; Z90.49 Acquired absence of other specified parts of digestive tract; F17.220 Nicotine dependence, chewing tobacco, uncomplicated
CPT/HCPCS: 36415; 36416; 80048; 82947; 85025; 88304; J0131; J0670; J0694; J1100; J1650; J1885; J2001; J2250; J2270; J2405; J2704; J3010; J3490; S0028

== ENCOUNTER 2018-08-09 11:21 | Outpatient (CLI) | payer OTHER ==
[2018-08-09 12:29] LABS: #Eosinphils 0.1 thou/uL (0.0-0.7); #Lymphocytes 2.7 thou/uL (1.20-3.40); #Monocytes 0.5 thou/uL (0.11-0.59); #Neutrophils 5.1 thou/uL (1.40-6.50); %Basophils 0.5 % (0.0-1.0); %Eosinophils 1.6 % (0.0-10.0); %Lymphocytes 31.6 % (21.0-51.0); %Neutrophils 60.3 % (42.0-75.0); Hemoglobin 15.4 g/dL (14.0-18.0); Mean Corpuscular HGB CONC 32.3 g/dL (32.0-36.0); Mean Corpuscular Hemoglobin 26.7 pg (27.0-31.0); Mean Corpuscular Volume 82.6 fL (78.0-98.0); Mean Platelet Volume 8.4 fL (7.4-10.4); Platelet Count 194 thou/uL (130-400); RBC Distribution Width 14.5 % (11.5-14.5); Red Blood Cell (RBC) Count 5.77 mill/uL (4.70-6.10); White Blood Cell (WBC) Count 8.4 thou/uL (4.8-10.8)
[2018-08-09 12:46] LABS: Anion Gap 14 mmol/L (10-20); BUN (Urea Nitrogen) 13 mg/dL (8.9-20.6); Calc. Creatinine Clearance 0 mL/min (70-130); Calcium 9.8 mg/dL (7.8-10.44); Carbon Dioxide 26 mmol/L (22-29); Chloride 104 mmol/L (98-107); Estimated GFR-MDRD 81; Glucose 102 mg/dL (70-105); Potassium 4.2 mmol/L (3.5-5.1); Sodium 140 mmol/L (136-145)
== END 2018-08-09 11:22 | disposition home or self-care (01) ==
LOC: LABBT 11:21
PROVIDERS: ATTEND Specialist
DX: Z01.812 Encounter for preprocedural laboratory examination (principal); Z85.038 Personal history of other malignant neoplasm of large intestine
CPT/HCPCS: 80048; 85025

== ENCOUNTER 2019-05-28 10:55 | Outpatient (CLI) | payer OTHER ==
--- NOTE | 2019-05-28 11:58 | CT ---
CT OF THE CHEST, ABDOMEN AND PELVIS WITH IV CONTRAST INDICATION: Lymphoma and colon cancer COMPARISON: CT the chest, abdomen and pelvis dated January 13, 2018, PET/CT dated June 13, 2018 a nd a CTA of the chest dated May 31, 2017. FINDINGS: CHEST: Lungs: The 7 mm pulmonary nodule in the left upper lobe is stable. There is an additional 3 mm pulmon jerri nodule left upper lobe which is stable. There is a stable 1.1 x 0.7 cm nodule in the posterior medial right lower lobe. No new pulmonary nodules identified. Pleural space: No effusion. Mediastinum: No pathologically enlarged lymph nodes are evident. The intraluminal thrombus seen adjac ent to the right Mediport tube tip is decreased in size, previously measuring 2.8 cm now measuring 2 cm. Axilla: No pathologically enlarged lymph nodes. ABDOMEN: Lung bases: Clear Liver: There are 2 new liver lesions. One is seen within the lateral left hepatic lobe on image 53 of series 2 measuring 1.5 cm. The additional is seen within segment 7 of the right hepatic lobe on image 52 of series 2 measuring 9.2 mm. No additional focal hepatic lesion is evident. Gallbladder: Normal appearing. Pancreas: Normal. Adrenal glands: Normal. Spleen: Normal. Kidneys and ureters: Normal. No hydronephrosis. Vasculature: Normal. Lymph nodes:The shotty appearing lymph nodes within the mesentery is similar appearing. Mild haziness is seen within the central root of the mesentery, stable to the prior exam. Free fluid in abdomen:No free fluid is evident. PELVIS: Small and large bowel: Postsurgical change involving the colorectal region is stable appearing. Appendix:Normal Bladder: There is slightly less prominent asymmetric wall thickening involving the right aspect of th e bladder seen on image 112 of series 2. Rectal and perirectal soft tissues:Normal. Reproductive structures: Normal. Free fluid in pelvis: No free fluid is evident. Lymphadenopathy pelvis: No lymphadenopathy is evident. Osseous structures: No acute osseous abnormality. No destructive osteolytic or osteoblastic lesion i s identified. There is scattered degenerative and osteoarthritic changes. Soft tissues:Normal. IMPRESSION: 1. Interval development of 2 new hepatic lesion suspicious for hepatic metastatic disease. 2. Stable bilateral pulmonary nodules. 3. Patsy central mesentery with shotty appearing lymph nodes appear similar to the comparison in 2018 . 4. Asymmetric wall thickening of the bladder is less prominent than seen on the most recent compariso n chest abdomen and pelvis CT dated January 13, 2018. Asymmetric wall thickening; however, does persist. 5. Slightly diminished size of the intraluminal thrombus seen adjacent to the right atrial Cintiaport josue tobias.
[2019-05-28] MEDS ORDERED: ISOVUE-370 76%-LOCM 1 ML ONE (13:21)
== END 2019-05-28 10:56 | disposition home or self-care (01) ==
LOC: BICCT 10:55
PROVIDERS: ATTEND Internal Medicine Medical Oncology
DX: C19 Malignant neoplasm of rectosigmoid junction (principal); C78.7 Secondary malignant neoplasm of liver and intrahepatic bile duct; R91.8 Other nonspecific abnormal finding of lung field; K76.9 Liver disease, unspecified; N32.89 Other specified disorders of bladder; I82.890 Acute embolism and thrombosis of other specified veins
CPT/HCPCS: 71260; 74177; Q9966